=== PATIENT | female | born 1970 | race Caucasian/White ===

== ENCOUNTER → 2016-06-06 | Outpatient (CLI) | payer BC ==
--- NOTE | 2016-06-06 16:57 | CT ---
EXAMINATION TYPE: CT brain wo/w con DATE OF EXAM: 06/06/2016 1:14 PM COMPARISON: 03/08/2016 HISTORY: Follow up to skull lesion Lt forehead CT DLP: 2180.8 mGycm, Automated exposure control for dose reduction was used. CONTRAST: Patient injected with 100 ml mL of Omnipaque 300. CT of the brain is performed utilizing 3 mm thick sections through the posterior fossa and 3 mm thick sections through the remaining calvarium. Study is performed within 24 hours of arrival to the hospital. No abnormal hyperdensity is present to suggest an acute intracranial hemorrhage. No mass lesion is evident. No acute infarcts are evident. Ventricles and sulci are appropriate for the patient age. Paranasal sinuses and mastoid air cells within the [id number] are clear. A small subtle calcification along the anterior left frontal region is stable. No abnormal enhancemen t is evident. IMPRESSIONS: 1. Normal pre and postcontrast CT brain. 2. The calcification along the anterior left frontal region is stable in appearance from March 2016
== END | disposition home or self-care (01) ==
LOC: RADCTMAIN 12:38
PROVIDERS: ATTEND Neurological Surgery
DX: G93.89 Other specified disorders of brain (principal)
CPT/HCPCS: 70470; Q9967

== ENCOUNTER → 2016-10-13 | Outpatient (CLI) | payer BC ==
--- NOTE | 2016-10-13 10:47 | CT ---
EXAMINATION TYPE: CT brain wo/w con DATE OF EXAM: 10/13/2016 10:37 AM COMPARISON: Previous study dated 06/06/2016. HISTORY: Other acquired deformity of head CT DLP: 2339 mGycm Automated exposure control for dose reduction was used. CONTRAST: CT scan of the head is performed with IV Contrast, patient injected with 100 ml mL of Omnipaque 300. FINDINGS: Central structures are midline. There is no evidence of hydrocephalus. No acute focal lesio n, mass effect or midline shift is seen. I do not see evidence of intracranial blood. Following intravenous administration of contrast, do not see evidence of abnormal enhancement. There is a tiny, stable 6 mm osteoma arising from the left frontal bone. This is unchanged. Visualize d portions of the paranasal sinuses and mastoids are clear. IMPRESSION: 1. NO ACUTE INTRACRANIAL ABNORMALITY. 2. 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
== END | disposition home or self-care (01) ==
LOC: RADCTMAIN 09:49
PROVIDERS: ATTEND Neurological Surgery
DX: D16.4 Benign neoplasm of bones of skull and face (principal)
CPT/HCPCS: 70470; Q9967

== ENCOUNTER → 2016-10-13 | Outpatient (CLI) | payer BC ==
--- NOTE | 2016-10-13 10:05 | USB ---
Reason for exam: follow-up at short interval from prior study. Physical Findings: Nurse did not find any significant physical abnormalities on exam. US Breast LT Left breast ultrasound includes all four quadrants, the retroareolar region and axilla. Finding demonstrates a 0.8 x 1.3 x 0.3cm oval lesion at 12 o'clock and a 0.9 x 1.0 x 0.3cm oval lesion at 2 o'clock. Probable ducts. These results were verbally communicated with the patient and result sheet given to the patient on 10/13/16. ASSESSMENT: Benign, BI-RAD 2 RECOMMENDATION: Return to routine screening mammogram schedule for both breasts. Back on schedule.
== END | disposition home or self-care (01) ==
LOC: RADUSWWP 08:59
PROVIDERS: ATTEND Obstetrics & Gynecology
DX: R92.8 Other abnormal and inconclusive findings on diagnostic imaging of breast (principal)

== ENCOUNTER → 2017-04-23 | Outpatient (CLI) | payer BC ==
--- NOTE | 2017-04-23 09:28 | CT ---
EXAMINATION TYPE: CT brain wo/w con DATE OF EXAM: 04/23/2017 COMPARISON: 10/13/2016 HISTORY: Follow up to ebony prominence on forehead, benign neoplasm CT DLP: 1956.4mGycm CONTRAST: CT scan of the head is performed without and with IV Contrast, patient injected with 100 mL of Omnipa que 300. Unenhanced followed by contrast enhanced CT of the brain is submitted for evaluation. The ventricles are midline. There is no evidence for intracranial hemorrhage or extra-axial collection. No mass e ffects are identified. Visualized bony calvarium is intact. Small bony osteoma left frontal calvari um is unchanged. Contrast is administered and no enhancing lesions are detected. No pathologic enhancement is identif ied. If symptoms persist consider MRI. IMPRESSION: 1. Stable left frontal osteoma. 2. No acute intracranial process.
== END | disposition home or self-care (01) ==
LOC: RADCTMAIN 08:47
PROVIDERS: ATTEND Neurological Surgery
DX: D33.2 Benign neoplasm of brain, unspecified (principal); D16.4 Benign neoplasm of bones of skull and face
CPT/HCPCS: 70470; Q9967

== ENCOUNTER 2017-11-28 08:43 | Day surgery (SDC) | payer BC ==
[2017-11-26 10:08] VITALS: BMI 33.9
[2017-11-28] MEDS ORDERED: PROPOFOL 10 MG/ML 20 ML VIAL IV ONE (10:20)
[2017-11-28] MEDS ORDERED: LIDOCAINE 1% INJ 10MG/ML (20 ML MDV) ONE (10:20)
[2017-11-28] MEDS ORDERED: LACTATED RINGERS 1,000 ML IV ONE (10:43)
[2017-11-28 10:46] VITALS: RESP 16
[2017-11-28] MEDS ORDERED: LACTATED RINGERS 1,000 ML IV SCH (11:01)
[2017-11-28 11:04] VITALS: BP 121/83; PULSE 76
--- NOTE | 2017-11-28 14:20 | PCN ---
PROCEDURE NOTE REQUESTING PHYSICIAN: Dr. Whitehead The patient is a 47-year-old pleasant white female, scheduled for an elective upper endoscopy as well as colonoscopy as part of evaluation of iron deficiency anemia. She denies any GI symptoms. She has prior history of hysterectomy. Recently was noted to have a hemoglobin of 8 and started on iron supplements and last hemoglobin is 10. She is scheduled for upper endoscopy with a colonoscopy to evaluate further. PROCEDURE PERFORMED: 1. EGD with biopsy. 2. Colonoscopy with biopsy. PREOPERATIVE DIAGNOSIS: Iron deficiency anemia. IV sedation by Anesthesia. PROCEDURE: After informed consent was obtained, the patient was brought to the endoscopy unit. IV conscious sedation was administered by Anesthesia under continuous monitoring. Initially upper endoscopy was done. The Olympus GF190 video endoscope was inserted into the mouth. Esophagus intubated without any difficulty and was gradually advanced to the stomach and duodenum and carefully examined. Bulb and the 2nd part of the duodenum appeared normal. Biopsies were done from the duodenum to rule out celiac disease. Scope was then withdrawn to the stomach adequately insufflated with air and upon careful examination, mucosa of the antrum had patchy areas of erythema consistent with gastritis and biopsies were done from this area. The body of the stomach appeared normal and on retroflexion, the cardia and fundus appeared normal. The scope was then withdrawn to the esophagus. The GE junction was located at 40 cm from the incisors. It appeared regular with no erythema, erosions or ulcerations. Entire length of esophagus appeared normal and the patient tolerated the procedure well. She continued to remain sedated. At this time a colonoscopy was done. Digital examination was normal. The Olympus CA190 was inserted to the rectum and gradually advanced to the cecum. Careful examination was performed as the scope was gradually being withdrawn. The ileocecal valve and appendiceal orifice were visualized and appeared normal. Prep was excellent. Cecum, ascending colon, transverse colon, descending colon appeared normal. In the sigmoid colon, there was a 5 mm polyp that was removed by biopsy. The rectum appeared normal. Retroflexion was performed in the rectum. No lesions were noted. The patient tolerated the procedure well. IMPRESSION: 1. Upper endoscopy revealed mild gastritis and small hiatal hernia. 2. Colonoscopy revealed a 5 mm sigmoid polyp that was removed by biopsy. RECOMMENDATIONS: 1. Findings of this examination were discussed with the patient as well as the family. She was advised to follow up with biopsy results. If the biopsy shows a tubular adenoma, she can have a repeat colonoscopy in 5 years. In regards of iron deficiency anemia, she was advised to continue with iron supplements and she will be seen in the office in 4 weeks. If she continues to have persistent iron deficiency anemia, we will investigate further with a small bowel capsule endoscopy\. [id number] / LONGN: [id number] /
--- NOTE | 2017-11-30 10:08 | CDI ---
Date: 11/30/17 CDS/Director Of Event Management Name: Barbra Nunez Phone: If any questions, call [employer] Treasurer at [phone] Patient Name: Raya Branch Admit Date: 11/28/17 Discharge Date: 11/28/17 ATTENTION: The [facility] Coding Staff appreciate your assistance in clarifying documentation. Please respond to the clarification below the line at the bottom and electronically sign. The [facility] Coding staff will review the response and follow-up if needed. Please note: Queries are made part of the Legal Health Record. If you have any questions, please contact the Financial Institution Treasurer. Dear Dr. Win, Please provide clarification as to the procedure use to remove the sigmoid polyp. Please clarify if hot or cold biopsy was used. Thank you for your kind consideration. Sigmoid polyp was removed with cold biopsy __ MTDD
== END 2017-11-28 11:26 | disposition home or self-care (01) ==
LOC: ORWHC2ENDO 08:43
PROVIDERS: ATTEND Internal Medicine Gastroenterology
DX: D12.5 Benign neoplasm of sigmoid colon (principal); K44.9 Diaphragmatic hernia without obstruction or gangrene; K21.9 Gastro-esophageal reflux disease without esophagitis; F39 Unspecified mood [affective] disorder; Z79.899 Other long term (current) drug therapy; Z88.5 Allergy status to narcotic agent; Z88.2 Allergy status to sulfonamides
CPT/HCPCS: 88305; 45380; 43239; J2001; J2704

== ENCOUNTER → 2019-06-18 | Outpatient (CLI) | payer BC ==
--- NOTE | 2019-06-20 10:24 | MM ---
Reason for exam: screening (asymptomatic). Last mammogram was performed 2 years and 1 month ago. Physical Findings: A clinical breast exam by your physician is recommended on an annual basis and results should be correlated with mammographic findings. MG 3D Screening Mammo W/Cad Bilateral CC and MLO view(s) were taken. Prior study comparison: May 21, 2017, bilateral MG 3d screening mammo w/cad. March 31, 2016, bilateral MG 3d screening mammo w/cad. The breast tissue is heterogeneously dense. This may lower the sensitivity of mammography. There is chronic nodularity in the left breast. No significant changes when compared with prior studies. ASSESSMENT: Benign, BI-RAD 2 RECOMMENDATION: Routine screening mammogram of both breasts in 1 year.
== END | disposition home or self-care (01) ==
LOC: RADMAMWWP 11:51
PROVIDERS: ATTEND Obstetrics & Gynecology
DX: Z12.31 Encounter for screening mammogram for malignant neoplasm of breast (principal)
CPT/HCPCS: 77063; 77067

== ENCOUNTER → 2020-05-12 | Outpatient (CLI) | payer BC ==
[2020-05-12 09:35] LABS: Basophils # (A) 0.1 k/uL (0-0.2); Basophils % (A) 1 %; Eosinophils # (A) 0.4 k/uL (0-0.7); Eosinophils % (A) 6 %; HGB 15.2 gm/dL (11.4-16.0); Lymphocytes # (A) 1.6 k/uL (1.0-4.8); Lymphocytes % (A) 23 %; MCH 32.4 pg (25.0-35.0); MCHC 33.8 g/dL (31.0-37.0); MCV 95.9 fL (80.0-100.0); Mean Platelet Volume 7.8; Monocytes # (A) 0.3 k/uL (0-1.0); Monocytes % (A) 5 %; Neutrophils # (A) 4.6 k/uL (1.3-7.7); Neutrophils % (A) 65 %; Platelet Count 400 k/uL (150-450); RDW 12.3 % (11.5-15.5); WBC 7.1 k/uL (3.8-10.6)
[2020-05-12 17:19] LABS: Hemoglobin A1C 5.1 % (4.0-6.0)
[2020-05-12 17:28] LABS: Ferritin 197.3 ng/mL (10.0-291.0)
[2020-05-12 18:52] LABS: % Iron Saturation 36.82 (12.00-45.00); African American GFR (CKD) 87.6 (60.0-200.0); Albumin 4.4 g/dL (3.80-4.90); Albumin/Globulin Ratio 2.32 (1.60-3.17); Anion Gap 11.2 mmol/L (4.00-12.00); BUN/Creat Ratio 8.89 Ratio (12.00-20.00); C Reactive Protein, High Sens 6.78 mg/L (0.000-3.000); Calcium 9.7 mg/dL (8.7-10.3); Carbon Dioxide 25.8 mmol/L (21.6-31.8); Globulin 1.9 g/dL (1.6-3.3); Non-African American GFR(CKD) 75.6 (60.0-200.0); Potassium 4.3 mmol/L (3.5-5.5); Total Bilirubin 0.5 mg/dL (0.2-1.2); Total Protein 6.3 g/dL (6.2-8.2)
[2020-05-13 08:44] LABS: Lamotrigine (Lamictal) 3.1 ug/mL (2.0-15.0)
== END | disposition home or self-care (01) ==
LOC: LABWHC1 09:07
PROVIDERS: ATTEND Psychiatry & Neurology Psychiatry
DX: R53.82 Chronic fatigue, unspecified (principal); D89.89 Other specified disorders involving the immune mechanism, not elsewhere classified; D50.9 Iron deficiency anemia, unspecified; E11.65 Type 2 diabetes mellitus with hyperglycemia; E53.8 Deficiency of other specified B group vitamins; E71.120 Methylmalonic acidemia; E55.9 Vitamin D deficiency, unspecified; K90.9 Intestinal malabsorption, unspecified; E56.9 Vitamin deficiency, unspecified; M81.0 Age-related osteoporosis without current pathological fracture
CPT/HCPCS: 36415; 80053; 80175; 82306; 82607; 82728; 83036; 83090; 83540; 83550; 83735; 83921; 84443; 84630; 85025; 86141

== ENCOUNTER → 2020-08-03 | Outpatient (CLI) | payer BC ==
[2020-08-03 23:49] LABS: C Reactive Protein, High Sens 5.7 mg/L (0.000-3.000)
== END | disposition home or self-care (01) ==
LOC: LABWHC1 10:26
PROVIDERS: ATTEND Psychiatry & Neurology Psychiatry
DX: D89.89 Other specified disorders involving the immune mechanism, not elsewhere classified (principal); R79.82 Elevated C-reactive protein (CRP); D51.9 Vitamin B12 deficiency anemia, unspecified; E55.9 Vitamin D deficiency, unspecified; M81.0 Age-related osteoporosis without current pathological fracture; E56.9 Vitamin deficiency, unspecified; E53.9 Vitamin B deficiency, unspecified
CPT/HCPCS: 36415; 82306; 82607; 83090; 83921; 86141

== ENCOUNTER → 2020-08-12 | Outpatient (CLI) | payer BC ==
--- NOTE | 2020-08-13 12:01 | MM ---
Reason for exam: screening (asymptomatic). Last mammogram was performed 1 year and 2 months ago. Physical Findings: A clinical breast exam by your physician is recommended on an annual basis and results should be correlated with mammographic findings. MG 3D Screening Mammo W/Cad Bilateral CC and MLO view(s) were taken. Prior study comparison: June 18, 2019, bilateral MG 3d screening mammo w/cad. May 21, 2017, bilateral MG 3d screening mammo w/cad. The breast tissue is heterogeneously dense. This may lower the sensitivity of mammography. Finding: There and 2-3 adjacent 25mm and17 mm circumscribed round and oval masses located 8 cm from the nipple in the upper outer quadrant, middle position of the left breast. New finding and increase in size since June 18, 2019 and May 21, 2017. ASSESSMENT: Incomplete: need additional imaging evaluation, BI-RAD 0 RECOMMENDATION: Ultrasound of the left breast. [facility] will attempt to contact patient to return for ultrasound.
== END ==
LOC: RADMAMWWP 07:51
PROVIDERS: ATTEND Obstetrics & Gynecology
DX: Z12.31 Encounter for screening mammogram for malignant neoplasm of breast (principal)
CPT/HCPCS: 77063; 77067

== ENCOUNTER → 2020-08-26 | Outpatient (CLI) | payer BC ==
--- NOTE | 2020-08-26 09:24 | USB ---
Reason for exam: additional evaluation requested from abnormal screening. Physical Findings: Nurse did not find any significant physical abnormalities on exam. US Breast Workup Limited LT Technologist: Carmita Myers Left limited breast ultrasound including focal area of concern, retroareolar and axilla demonstrates a 2.2 x 3.5 x 1.1cm cystic cluster at 1 o'clock. These results were verbally communicated with the patient and result sheet given to the patient on 08/26/20. ASSESSMENT: Benign, BI-RAD 2 RECOMMENDATION: Return to routine screening mammogram schedule for both breasts.
== END | disposition home or self-care (01) ==
LOC: RADUSWWP 07:06
PROVIDERS: ATTEND Obstetrics & Gynecology
DX: R92.8 Other abnormal and inconclusive findings on diagnostic imaging of breast (principal)

== ENCOUNTER → 2021-02-24 | Outpatient (CLI) | payer BC ==
--- NOTE | 2021-02-24 08:40 | CT ---
EXAMINATION TYPE: CT facial bones w con DATE OF EXAM: 02/24/2021 COMPARISON: None HISTORY: Benign neoplasm of left forehead CT DLP: 583 mGycm Automated exposure control for dose reduction was used. CONTRAST: CT scan of the facial bones is performed with IV Contrast, patient injected with 100 mL of Isovue 300 . TECHNIQUE: CT scan of the sinuses is performed without contrast, axial images are obtained, coronal r eformatted images are also reviewed. FINDINGS: Mild mucosal thickening maxillary sinuses and ethmoid air cells. Partial obstruction left o stiomeatal unit. Right ostiomeatal unit is patent. The nasal septum is deviated from left to right. Visualized portion of mastoid air cells show no abnormal opacification. The globes are intact bilate rally. There is a small osteoma high left frontal region measuring 7.6 x 6.0 x 3 mm. no bone destruction is seen. No additional osseous lesions noted IMPRESSION: 1. Left frontal osteoma. 2.Mild mucosal thickening maxillary sinuses and ethmoid air cells. Partial obstruction left ostiomeat al unit.
== END | disposition home or self-care (01) ==
LOC: RADCTMAIN 08:05
PROVIDERS: ATTEND Psychiatry & Neurology Neurology
DX: D16.4 Benign neoplasm of bones of skull and face (principal); J34.89 Other specified disorders of nose and nasal sinuses
CPT/HCPCS: 70487; Q9967

== ENCOUNTER → 2021-08-26 | Outpatient (CLI) | payer BC ==
--- NOTE | 2021-08-26 12:31 | MR ---
EXAMINATION TYPE: MR lumbar spine wo con DATE OF EXAM: 08/26/2021 COMPARISON: NONE HISTORY: Chronic Lower back pain. Right sided and down into Right thigh. TECHNIQUE: Multiplanar, multisequence imaging of the lumbar spine is performed without IV contrast. FINDINGS: Sagittal images of the lumbar spine show vertebral body heights and alignment to appear sat isfactory. Mild disc space narrowing L5-S1 level. Multilevel disc desiccation but the disc space heig hts otherwise a are maintained. The conus medullaris is normal in position and signal ending superio r L1 level. Hemangioma involving the right L2 vertebra sagittal image 11 is present. Axial images show no large disc herniation mild facet arthropathy L3-L4 level. Moderate facet arthrop athy L4-L5 level axial image 7. Paraspinal muscle bulk is maintained. IMPRESSION: Some facet arthropathy in the lower lumbar spine. No significant disc herniation seen to account for patient's right-sided radiculopathy type symptoms.
== END | disposition home or self-care (01) ==
LOC: RADMRIMAIN 10:37
PROVIDERS: ATTEND Psychiatry & Neurology Neurology
DX: M47.816 Spondylosis without myelopathy or radiculopathy, lumbar region (principal)
CPT/HCPCS: 72148

== ENCOUNTER → 2021-09-26 | Outpatient (CLI) | payer BC ==
--- NOTE | 2021-09-28 09:26 | MM ---
Reason for exam: screening (asymptomatic). Last mammogram was performed 1 year and 1 month ago. Physical Findings: A clinical breast exam by your physician is recommended on an annual basis and results should be correlated with mammographic findings. MG 3D Screening Mammo W/Cad Bilateral CC and MLO view(s) were taken. Prior study comparison: August 12, 2020, bilateral MG 3d screening mammo w/cad. June 18, 2019, bilateral MG 3d screening mammo w/cad. The breast tissue is heterogeneously dense. This may lower the sensitivity of mammography. There is chronic nodularity in the left breast, decreased in size. There is no new dominant lesion. ASSESSMENT: Benign, BI-RAD 2 RECOMMENDATION: Routine screening mammogram of both breasts in 1 year.
== END | disposition home or self-care (01) ==
LOC: RADMAMWWP 12:14
PROVIDERS: ATTEND Obstetrics & Gynecology
DX: Z12.31 Encounter for screening mammogram for malignant neoplasm of breast (principal)
CPT/HCPCS: 77063; 77067

== ENCOUNTER → 2022-02-14 | Outpatient (CLI) | payer BC ==
[2022-02-14 18:25] LABS: Basophils # (A) 0.05 X 10*3/uL (0.00-0.10); Basophils % (A) 0.7 %; Eosinophils # (A) 0.24 X 10*3/uL (0.04-0.35); Eosinophils % (A) 3.6 %; HCT 34.5 % (37.2-46.3); HGB 10.1 g/dL (12.0-15.0); Immature Grans, Automated 0.1 %; Lymphocytes # (A) 2.42 X 10*3/uL (0.90-5.00); Lymphocytes % (A) 36.1 %; MCH 24.2 pg (27.0-32.0); MCHC 29.3 g/dL (32.0-37.0); MCV 82.5 fL (80.0-97.0); Mean Platelet Volume 9.9 fL (9.5-12.2); Monocytes # (A) 0.45 X 10*3/uL (0.20-1.00); Monocytes % (A) 6.7 %; NRBC Per 100 WBC 0 /100 WBCS (0.0-0.0); Neutrophils # (A) 3.54 X 10*3/uL (1.80-7.70); Neutrophils % (A) 52.8 %; Platelet Count 514 X 10*3/uL (140-440); RBC 4.18 X 10*6/uL (4.10-5.20); RDW 17.2 % (11.5-14.5); WBC 6.71 X 10*3/uL (4.50-10.00)
[2022-02-14 20:01] LABS: African American GFR (CKD) 89.2 (60.0-200.0); Albumin 4.5 g/dL (3.8-4.9); Albumin/Globulin Ratio 2.13 (1.60-3.17); Anion Gap 10.5 mmol/L (10.00-18.00); BUN/Creat Ratio 17.46 Ratio (12.00-20.00); Blood Urea Nitrogen 15.4 mg/dL (9.0-27.0); C Reactive Protein, High Sens 4.55 mg/L (0.000-3.000); Calcium 9.6 mg/dL (8.7-10.3); Carbon Dioxide 26.9 mmol/L (20.0-27.5); Globulin 2.1 g/dL (1.6-3.3); Non-African American GFR(CKD) 76.9 (60.0-200.0); Potassium 4.8 mmol/L (3.5-5.5); Total Bilirubin 0.3 mg/dL (0.30-1.20); Total Protein 6.5 g/dL (6.2-8.2)
== END | disposition home or self-care (01) ==
LOC: LABWHC1 12:14
PROVIDERS: ATTEND Psychiatry & Neurology Psychiatry
DX: E03.9 Hypothyroidism, unspecified (principal); E11.65 Type 2 diabetes mellitus with hyperglycemia; E53.8 Deficiency of other specified B group vitamins; E06.3 Autoimmune thyroiditis; M81.0 Age-related osteoporosis without current pathological fracture; D89.89 Other specified disorders involving the immune mechanism, not elsewhere classified; R79.82 Elevated C-reactive protein (CRP); R53.82 Chronic fatigue, unspecified
CPT/HCPCS: 36415; 80053; 82306; 82607; 83036; 83735; 84443; 85025; 86141

== ENCOUNTER 2022-05-26 05:59 | Day surgery (SDC) | payer BC ==
[2022-05-24 11:05] VITALS: BMI 33.0
[~2022-05-26 05:59] MED LIST: LACTATED RINGERS 1,000 ML IV SCH; LIDOCAINE 1% (10MG/ML) FOR IV START INTRADERMA PRN
[2022-05-26 06:36] VITALS: RESP 16; TEMP 97
[2022-05-26 06:38] LABS: Glucose,Whole Blood 95 mg/dL (70-110)
[2022-05-26] MEDS ORDERED: LIDOCAINE 2% INJ 20 MG/ML (2 ML VIAL) ONE (07:04)
[2022-05-26] MEDS ORDERED: PROPOFOL 10 MG/ML 20 ML VIAL IV ONE (07:04)
--- NOTE | 2022-05-26 07:28 | P.PCN ---
Date of Procedure: 05/26/22 Procedure(s) Performed: Brief history: Patient is a pleasant 52-year-old white female scheduled for an elective upper endoscopy as well as colonoscopy as a part of evaluation of evaluation of iron deficiency anemia. She also has long-standing history of GERD and is currently on omeprazole 20 mg daily and doing well Procedure performed: Esophagogastroduodenoscopy with biopsy Colonoscopy Preoperative diagnosis: Long-standing history of GERD Iron deficiency anemia Anesthesia: MAC Procedure: After informed consent was obtained from the patient was brought into the endoscopy unit and IV sedation was administered by anesthesia under continuous monitoring. Initially upper endoscopy was done. The Olympus GF 160 video endoscope was inserted inserted into the mouth and esophagus intubated without any difficulty and was gradually advanced into the stomach and duodenum and carefully examined. The bulb and second part of the duodenum appeared normal. Biopsies were done from the duodenum to rule out celiac disease. The scope was then withdrawn into the stomach adequately insufflated with air and upon careful examination the antrum had mild gastritis and biopsies were done from this area. Mucosa of the body, cardia and fundus appeared normal. The scope was then withdrawn into the esophagus. The GE junction was located at 40 cm to the incisors. Small hiatal hernia noted. It appeared regular with no erythema erosions or ulcerations. Distal esophageal Schatzki's ring identified and was not dilated. Rest of the esophagus appeared normal. Patient tolerated the procedure well. At this time the patient continued to remain sedation. Initial digital rectal examination was normal. Olympus CF 160 video colonoscope was then inserted into the rectum and gradually advanced to the cecum without any difficulty. Careful examination was performed as the scope was gradually being withdrawn. The prep was excellent. The cecum, ascending colon, transverse colon, descending colon, sigmoid colon and rectum appeared normal. Retroflexion was performed in the rectum and no lesions were noted. Patient tolerated the procedure well. Impression: 1. Upper endoscopy revealed small hiatal hernia, distal esophageal Schatzki's ring and mild gastritis 2. Colonoscopy was within normal limits with no evidence of colorectal neoplasia Recommendations: Findings of this examination were discussed with the patient as well as her family. She was advised to follow with the biopsy results. She will continue with iron supplements and monitor CBC on a periodic basis. Recommend repeat screening colonoscopy in 10 years. Continue with omeprazole 20 mg daily and follow antrum reflux measures.
[2022-05-26 07:49] VITALS: BP 121/71; PULSE 76
== END 2022-05-26 08:05 | disposition home or self-care (01) ==
LOC: ORWHC2ENDO 05:59
PROVIDERS: ATTEND Internal Medicine Gastroenterology
DX: D50.9 Iron deficiency anemia, unspecified (principal); K29.50 Unspecified chronic gastritis without bleeding; K44.9 Diaphragmatic hernia without obstruction or gangrene; K31.A19 Gastric intestinal metaplasia without dysplasia, unspecified site; K22.2 Esophageal obstruction; K21.00 Gastro-esophageal reflux disease with esophagitis, without bleeding; Z88.2 Allergy status to sulfonamides; Z88.5 Allergy status to narcotic agent; G43.909 Migraine, unspecified, not intractable, without status migrainosus; G47.33 Obstructive sleep apnea (adult) (pediatric); E11.9 Type 2 diabetes mellitus without complications; Z79.84 Long term (current) use of oral hypoglycemic drugs; E07.9 Disorder of thyroid, unspecified; Z79.890 Hormone replacement therapy; F39 Unspecified mood [affective] disorder; Z79.82 Long term (current) use of aspirin; Z79.83 Long term (current) use of bisphosphonates; Z79.51 Long term (current) use of inhaled steroids; Z79.899 Other long term (current) drug therapy
CPT/HCPCS: 88305; 45378; 43239; J2704; J2001

== ENCOUNTER → 2022-06-08 | Outpatient (CLI) | payer BC ==
[2022-06-08 18:36] LABS: HDL Cholesterol 38.8 mg/dL (40.00-60.00)
[2022-06-08 18:48] LABS: Chol/HDL Ratio 6.49 Ratio
== END | disposition home or self-care (01) ==
LOC: LABWHC1 09:57
PROVIDERS: ATTEND Family Medicine
DX: Z00.00 Encounter for general adult medical examination without abnormal findings (principal); E03.9 Hypothyroidism, unspecified; E06.3 Autoimmune thyroiditis
CPT/HCPCS: 36415; 80061; 83721; 84443

== ENCOUNTER → 2022-10-05 | Outpatient (CLI) | payer BC ==
--- NOTE | 2022-10-05 14:44 | BD ---
EXAMINATION TYPE: Axial Bone Density DATE OF EXAM: 10/05/2022 CLINICAL HISTORY: 52 years old Female. ICD-10 CODE: N951 POST MENOP SYMPTOMS Height: 65 Weight: 208 FRAX RISK QUESTIONS: Family History (Parent hip fracture): no History of Fracture in Adulthood: no Secondary Osteoporosis: no Rheumatoid Arthritis: no RISK FACTORS HISTORY OF: Family History of Osteoporosis: no Active: yes Diet low in dairy products/other sources of calcium: yes Postmenopausal woman: yes, age 52 Lost more than 2 inches in height since high school: no Frequent falls: no Poor Health: no MEDICATIONS: Thyroid Medications: yes Which medication: Levothyroxine How Lon months Additional Medications: yes depression meds, allergy meds, cholesterol meds, Prilosec, muscle relaxer, migraine meds EXAM MEASUREMENTS: Bone mineral densitometry was performed using the Vixlo System. Bone mineral density as measured about the Lumbar spine is: ----- L1-L4(G/cm2): 1.228 T Score Values are as follows: ----- L1: 1.5 ----- L2: 0.7 ----- L3: 0.0 ----- L4: -0.5 ----- L1-L4: 0.4 Z Score Values are as follows: ----- L1: 1.0 ----- L2: 0.1 ----- L3: -0.5 ----- L4: -1.1 ----- L1-L4: -0.2 Bone mineral density baseline Bone mineral density about the R hip (g/cm2): 1.126 Bone mineral density about the L hip (g/cm2): 1.133 T Score values are as follows: -----R Neck: -0.8 -----L Neck: -1.3 -----R Total: 0.9 -----L Total: 1.0 Z Score values are as follows: -----R Neck: -0.7 -----L Neck: -1.1 -----R Total: 0.7 -----L Total: 0.8 Bone mineral density baseline FRAX%s: The graph provided illustrates a 4.1% chance for a major osteoporotic fx and a 0.3% chance fo r the hips probability for fx in 10 years time. IMPRESSION: Osteopenia (T Score between -2.5 and -1). There is slightly increased risk of fracture and the patient may be considered for treatment. Re-Screen 2-5 years. NOTE: T-SCORE=SD OF THE YOUNG ADULT MEAN.
--- NOTE | 2022-10-06 11:36 | MM ---
Reason for Exam: Screening (asymptomatic). Last mammogram was performed 1 year(s) and 1 month(s) ago. Patient History: Menarche at age 14. First Full-Term at age 28. Hysterectomy at age 40. Risk Values: Dayami 5 year model risk: 1.1%. NCI Lifetime model risk: 9.9%. Prior Study Comparison: 06/18/2019 Bilateral Screening Mammogram, [facility]. 08/12/2020 Bilateral Screening Mammogram, [facility]. 09/26/2021 Bilateral Screening Mammogram, [facility]. Tissue Density: There are scattered fibroglandular densities. Findings: Analyzed By CAD. Chronic bilateral nodularity. There is no suspicious group of microcalcifications or new suspicious mass in either breast. Overall Assessment: Benign, BI-RAD 2 Management: Screening Mammogram of both breasts in 1 year. . Patient should continue monthly self-breast exams. A clinical breast exam by your physician is recommended on an annual basis. This exam should not preclude additional follow-up of suspicious palpable abnormalities. Note on Dayami scores and lifetime risk: 1. A Dayami score greater than 3% is considered moderate risk. If this is the case, consider specialist referral to assess eligibility for a risk reducing agent. 2. If overall lifetime risk for the development of breast cancer is 20% or higher, the patient may qualify for future screening with alternating mammogram and breast MRI. Electronically signed and approved by: Vanessa Meza M.D. Radiologist
== END | disposition home or self-care (01) ==
LOC: RADMAMWWP 12:52
PROVIDERS: ATTEND Obstetrics & Gynecology
DX: Z12.31 Encounter for screening mammogram for malignant neoplasm of breast (principal); M85.852 Other specified disorders of bone density and structure, left thigh; Z78.0 Asymptomatic menopausal state
CPT/HCPCS: 77063; 77067; 77080

== ENCOUNTER → 2023-07-23 | Outpatient (CLI) | payer BC ==
[2023-07-23 19:00] LABS: Basophils # (A) 0.04 X 10*3/uL (0.00-0.10); Basophils % (A) 0.5 %; Eosinophils # (A) 0.26 X 10*3/uL (0.04-0.35); Eosinophils % (A) 3.5 %; HCT 44.3 % (37.2-46.3); HGB 13.9 g/dL (12.0-15.0); Lymphocytes # (A) 2.26 X 10*3/uL (0.90-5.00); Lymphocytes % (A) 30.3 %; MCH 30.3 pg (27.0-32.0); MCHC 31.4 g/dL (32.0-37.0); MCV 96.5 FL (80.0-97.0); Mean Platelet Volume 10.4 FL (9.5-12.2); Monocytes # (A) 0.54 X 10*3/uL (0.20-1.00); Monocytes % (A) 7.2 %; NRBC Per 100 WBC 0 X 10*3/uL (0.00-0.01); Neutrophils # (A) 4.34 X 10*3/uL (1.80-7.70); Neutrophils % (A) 58.2 %; Platelet Count 443 X 10*3/uL (140-440); RBC 4.59 X 10*6/uL (4.10-5.20); WBC 7.46 X 10*3/uL (4.50-10.00)
[2023-07-23 19:49] LABS: % Iron Saturation 16.01 (12.00-45.00); ALT 18 U/L (8-44); AST 17 U/L (13-35); Albumin 4.6 g/dL (3.8-4.9); Alkaline Phosphatase 131 U/L (41-126); BUN/Creat Ratio 13.14 Ratio (12.00-20.00); Blood Urea Nitrogen 9.2 mg/dL (9.0-27.0); Calcium 9.9 mg/dL (8.7-10.3); Carbon Dioxide 28.2 mmol/L (21.6-31.8); Chloride 100 mmol/L (96-109); Globulin 2.3 g/dL (1.6-3.3); Glucose 92 mg/dL (70-110); Iron 69 UG/DL (50-170); Potassium 4.6 mmol/L (3.5-5.5); Sodium 141 mmol/L (135-145); Total Bilirubin 0.2 mg/dL (0.3-1.2); Total Iron Binding Capacity 431 UG/DL (228-460); Total Protein 6.9 g/dL (6.2-8.2)
== END | disposition home or self-care (01) ==
LOC: LABWHC1 12:47
DX: E11.65 Type 2 diabetes mellitus with hyperglycemia (principal); R53.82 Chronic fatigue, unspecified; D89.89 Other specified disorders involving the immune mechanism, not elsewhere classified; D50.9 Iron deficiency anemia, unspecified; D51.9 Vitamin B12 deficiency anemia, unspecified; R79.82 Elevated C-reactive protein (CRP); E55.9 Vitamin D deficiency, unspecified; E56.9 Vitamin deficiency, unspecified; M81.0 Age-related osteoporosis without current pathological fracture
CPT/HCPCS: 36415; 80053; 82306; 82607; 82728; 83036; 83540; 83550; 84443; 85025; 86141

== ENCOUNTER → 2023-10-11 | Outpatient (CLI) | payer BC ==
--- NOTE | 2023-10-15 07:08 | MR ---
EXAMINATION TYPE: MR hip LT wo con DATE OF EXAM: 10/11/2023 COMPARISON: None. HISTORY: No prior, left hip pain no injury for 1 month, xray showed arthritis, no sx , no CA Standard multiplanar, multisequence MRI departmental protocol Multiplanar, multisequence images of the pelvis focusing on the left hip were acquired without contra st. FINDINGS: Tiny right hip joint effusion is presumed physiologic. Fairly moderate size asymmetrically larger left hip joint effusion. Femoral head shapes are maintained bilaterally. Moderate superior dominga nt space loss left hip is more prominent than opposite right hip. [id number]-[id number] acetabular spurrin g of the left hip is more prominent than opposite right hip. There is 4 mm subchondral cyst involving the superior lateral right acetabulum on coronal image 10. No serpiginous diminished T1 signal to nance ggest avascular necrosis. No suspicious increase T2 osseous signal to suggest edema. Mild increased T 2 signal at level of greater trochanters bilaterally more prominent in the right hip. Muscle bulk is symmetric and maintained bilaterally. No groin hernia or adenopathy is seen. No abnormal bowel dilatation. No free fluid in the pelvis. Uterus is surgically absent or markedly at rophic. IMPRESSION: 1. Asymmetric more prominent moderate degenerative changes left hip as detailed above. Asymmetric mod erate left sided hip joint effusion. 2. Right greater than left insertional tendinosis at level of greater trochanter within the bilateral hips.
== END | disposition home or self-care (01) ==
LOC: RADMRIMAIN 09:38
PROVIDERS: ATTEND Orthopaedic Surgery
DX: M25.452 Effusion, left hip (principal); M84.352A Stress fracture, left femur, initial encounter for fracture; M16.12 Unilateral primary osteoarthritis, left hip

== ENCOUNTER → 2023-11-20 | Outpatient (CLI) | payer BC ==
--- NOTE | 2023-11-21 14:08 | MM ---
Reason for Exam: Screening (asymptomatic). Last mammogram was performed 1 year(s) and 1 month(s) ago. Patient History: Menarche at age 14. First Full-Term at age 28. Hysterectomy at age 40. Postmenopausal. Patient has history of breast feeding. Risk Values: Dayami 5 year model risk: 1.1%. NCI Lifetime model risk: 9.7%. Prior Study Comparison: 05/21/2017 Bilateral Screening Mammogram, [facility]. 06/18/2019 Bilateral Screening Mammogram, [facility]. 08/12/2020 Bilateral Screening Mammogram, [facility]. 09/26/2021 Bilateral Screening Mammogram, [facility]. 10/05/2022 Bilateral MG 3D screening mammo w/cad, [facility]. Tissue Density: There are scattered areas of fibroglandular density. Findings: Analyzed By CAD. Right breast: There is no suspicious group of microcalcifications or new suspicious mass. Left breast: There is no suspicious group of microcalcifications or new suspicious mass. Overall Assessment: Negative, BI-RAD 1 Management: Screening Mammogram of both breasts in [address] [facility] will attempt to contact patient to return for supplemental views and ultrasound if indicated. Patient should continue monthly self-breast exams. A clinical breast exam by your physician is recommended on an annual basis. This exam should not preclude additional follow-up of suspicious palpable abnormalities. Note on Dayami scores and lifetime risk: 1. A Dayami score greater than 3% is considered moderate risk. If this is the case, consider specialist referral to assess eligibility for a risk reducing agent. 2. If overall lifetime risk for the development of breast cancer is 20% or higher, the patient may qualify for future screening with alternating mammogram and breast MRI. Electronically signed and approved by: Chico Herrera DO
== END | disposition home or self-care (01) ==
LOC: RADMAMWWP 11:36
PROVIDERS: ATTEND Internal Medicine
DX: Z12.31 Encounter for screening mammogram for malignant neoplasm of breast (principal); Z78.0 Asymptomatic menopausal state
CPT/HCPCS: 77063; 77067

== ENCOUNTER → 2024-07-28 | Outpatient (CLI) | payer BC ==
[~2024-07-28] MED LIST changes: -LACTATED RINGERS 1,000 ML IV SCH; -LIDOCAINE 1% (10MG/ML) FOR IV START INTRADERMA PRN; +SODIUM CHLORIDE 0.9% 250 ML in EMPTY BAG 1 BAG IV PRN
[2024-07-28 08:53] VITALS: BP 126/85; PULSE 69; RESP 18; TEMP 98.3
[2024-07-28] MEDS: SODIUM CHLORIDE 0.9% 500 ML 500 ML in EMPTY BAG 1 BAG IV PRN (08:56)
== END ==
LOC: PROCWHC3 08:39
PROVIDERS: ATTEND Internal Medicine Hematology & Oncology
DX: D50.9 Iron deficiency anemia, unspecified (principal)
CPT/HCPCS: 96365; Q0138

== ENCOUNTER → 2024-08-04 | Outpatient (CLI) | payer BC ==
[2024-08-04 16:56] LABS: % Iron Saturation 106.19 (12.00-45.00); C Reactive Protein, High Sens 5.28 mg/L (0.000-3.000)
== END | disposition home or self-care (01) ==
LOC: LABWHC1 09:28
PROVIDERS: ATTEND Internal Medicine
DX: D89.89 Other specified disorders involving the immune mechanism, not elsewhere classified (principal); D50.9 Iron deficiency anemia, unspecified; D51.9 Vitamin B12 deficiency anemia, unspecified; E83.89 Other disorders of mineral metabolism; E56.9 Vitamin deficiency, unspecified; E63.0 Essential fatty acid [EFA] deficiency; K90.9 Intestinal malabsorption, unspecified; R79.82 Elevated C-reactive protein (CRP)
CPT/HCPCS: 36415; 82607; 82728; 83540; 83550; 83735; 84630; 86141

== ENCOUNTER → 2024-12-22 | Outpatient (CLI) | payer BC ==
[2024-12-22 15:43] LABS: ALT 18 U/L (8-44); AST 19 U/L (13-35); Albumin 4.6 g/dL (3.8-4.9); Albumin/Globulin Ratio 2.19 Ratio (1.60-3.17); Alkaline Phosphatase 125 U/L (41-126); Anion Gap 11.80 mmol/L (4.00-12.00); BUN/Creat Ratio 16.11 Ratio (12.00-20.00); Blood Urea Nitrogen 14.5 mg/dL (9.0-27.0); Calcium 10.0 mg/dL (8.7-10.3); Carbon Dioxide 28.2 mmol/L (21.6-31.8); Chloride 103 mmol/L (96-109); Globulin 2.1 g/dL (1.6-3.3); Glucose 100 mg/dL (70-110); Potassium 4.7 mmol/L (3.5-5.5); Sodium 143 mmol/L (135-145); Total Protein 6.7 g/dL (6.2-8.2)
== END | disposition home or self-care (01) ==
LOC: LABWHC1 11:21
PROVIDERS: ATTEND Psychiatry & Neurology Psychiatry
DX: R53.82 Chronic fatigue, unspecified (principal)
CPT/HCPCS: 36415; 80053